=== PATIENT | male | born 1995 | race Caucasian/White ===

== ENCOUNTER 2017-12-26 09:35 | Day surgery (SDC) | payer OTHER ==
[~2017-12-26] VITALS: Ht 180.3 cm; Wt 57.4 kg
[~2017-12-26 09:35] MED LIST: ALBU90OI INH; Cheratussin AC118 ML PO; SPACE CHAMBER1 EACH INH
== END 2017-12-26 15:22 | disposition home or self-care (01) ==
LOC: ORSCSDS 09:35
PROVIDERS: Orthopaedic Surgery
PROC: 0LQ14ZZ Repair Right Shoulder Tendon, Percutaneous Endoscopic Approach (ICD-10-PCS; principal; 2017-12-26 11:15)
PROC: 0RQJ4ZZ Repair Right Shoulder Joint, Percutaneous Endoscopic Approach (ICD-10-PCS; principal; 2017-12-26 11:15)
DX: M24.411 Recurrent dislocation, right shoulder (principal); S46.011A Strain of muscle(s) and tendon(s) of the rotator cuff of right shoulder, initial encounter
CPT/HCPCS: C1713; J0171; J0690; J1100; J1885; J2250; J2405; J2710; J3010; J7120